=== PATIENT | female | born 1995 | race American Indian/Alaskan Native ===

== ENCOUNTER 2017-03-08 10:27 | Emergency (ER) | payer SELFPAY ==
[2017-03-08 10:57] VITALS: BP 111/71
--- NOTE | 2017-03-08 13:35 | Emergency Department Report ---
ED General Adult HPI - General Chief complaint: Rectal Pain Stated complaint: COUGH Time Seen by Provider: 03/08/17 13:24 Source: patient Mode of arrival: Ambulatory Limitations: No Limitations - History of Present Illness Initial comments: pt is a 21 y/o aaf who presents for uri symptoms x 1 week and secondary complaint for hemrrhoids recurring 2nd time this year symptoms include itching and burn , pain with palpation/wipping after defication pt denies seeing blood no abdominal pain no n/v , resp symptoms include clear post nasal drip and head congestion cough productive clear no sob no wheezing no fever no chills no Onset/Timin -: week(s) Location: buttocks (hemorrhoids) Radiation: non-radiation Severity scale (0 -10): 4 Quality: aching (burning ) Consistency: intermittent (Bowel Movement , palpation, wipping ) Improves with: other (nothing tried for cold symptoms ) Worsens with: none Associated Symptoms: denies: confusion, chest pain, diaphoresis, fever/chills, headaches, loss of appetite, malaise, nausea/vomiting, rash, seizure, shortness of breath, syncope, weakness Treatments Prior to Arrival: none - Related Data Previous Rx's Medication Instructions Recorded Last Taken Type Guaifenesin/Pseudoephedrne HCl 1 tab PO BID #24 tab 03/08/17 Unknown Rx [Mucinex D ER 1,200-120 mg Tab] Hydrocortisone/Pramoxine 10 gm RC BID #1 kit 03/08/17 Unknown Rx [Proctofoam-Hc Foam] Ibuprofen [Motrin 800 MG tab] 800 mg PO Q8HR PRN #30 tablet 03/08/17 Unknown Rx Allergies Allergy/AdvReac Type Severity Reaction Status Date / Time No Known Allergies Allergy Unverified 03/08/17 10:57 ED Review of Systems ROS: Stated complaint: COUGH Other details as noted in HPI Constitutional: denies: chills, fever Eyes: denies: eye pain, eye discharge, vision change ENT: congestion. denies: ear pain, throat pain, dental pain, hearing loss, epistaxis Respiratory: cough. denies: orthopnea, shortness of breath, wheezing Cardiovascular: denies: chest pain, palpitations Endocrine: no symptoms reported Gastrointestinal: other (hemorrhoids). denies: abdominal pain, nausea, vomiting , diarrhea, constipation, hematemesis, melena, hematochezia Genitourinary: denies: urgency, dysuria, discharge Musculoskeletal: denies: back pain, joint swelling, arthralgia Skin: denies: rash, lesions Neurological: denies: headache, weakness, paresthesias Psychiatric: denies: anxiety, depression Hematological/Lymphatic: denies: easy bleeding, easy bruising ED Past Medical Hx - Past Medical History Previous Medical History?: Yes Hx Seizures: Yes Additional medical history: HEMMORROID - Surgical History Past Surgical History?: No - Social History Smoking Status: Current Every Day Smoker Substance Use Type: None - Medications Home Medications: Home Medications Medication Instructions Recorded Confirmed Last Taken Type Guaifenesin/Pseudoephedrne HCl 1 tab PO BID #24 tab 03/08/17 Unknown Rx [Mucinex D ER 1,200-120 mg Tab] Hydrocortisone/Pramoxine 10 gm RC BID #1 kit 03/08/17 Unknown Rx [Proctofoam-Hc Foam] Ibuprofen [Motrin 800 MG tab] 800 mg PO Q8HR PRN #30 tablet 03/08/17 Unknown Rx ED Physical Exam - General Limitations: No Limitations General appearance: alert, in no apparent distress - Head Head exam: Present: atraumatic, normocephalic - Eye Eye exam: Present: normal appearance, PERRL, EOMI Pupils: Present: normal accommodation - ENT ENT exam: Present: mucous membranes moist, TM's normal bilaterally, normal external ear exam - Expanded ENT Exam Expanded Mouth exam: Present: normal external inspection, tongue normal. Absent: trismus , tongue elevation Teeth exam: Present: normal inspection Throat exam: Positive: normal inspection, tonsillar erythema (no exudate no lesion no swelling uvula midline no stridor ). Negative: tonsillomegaly, tonsillar exudate, R peritonsillar mass, L peritonsillar mass - Neck Neck exam: Present: normal inspection, full ROM. Absent: tenderness, lymphadenopathy, thyromegaly - Respiratory Respiratory exam: Present: normal lung sounds bilaterally. Absent: respiratory distress, wheezes, rales, rhonchi, stridor, chest wall tenderness, accessory muscle use, decreased breath sounds, prolonged expiratory - Cardiovascular Cardiovascular Exam: Present: regular rate, normal rhythm, normal heart sounds. Absent: clicks - GI/Abdominal GI/Abdominal exam: Present: soft, normal bowel sounds. Absent: distended, tenderness, guarding, rebound, rigid, organomegaly, mass, bruit, pulsatile mass , hernia - Rectal Rectal exam: Present: hemorrhoids (11oclock stage 1 nonthormboses external hemorrhoid no internal hemorrhoid to exam no bleeding ) - Extremities Exam Extremities exam: Present: normal inspection, full ROM, normal capillary refill , calf tenderness. Absent: tenderness, pedal edema, joint swelling - Back Exam Back exam: Present: normal inspection, full ROM. Absent: CVA tenderness (R), CVA tenderness (L), muscle spasm, paraspinal tenderness, vertebral tenderness, rash noted - Neurological Exam Neurological exam: Present: alert, oriented X3, normal gait, reflexes normal. Absent: CN II-XII intact, motor sensory deficit - Psychiatric Psychiatric exam: Present: normal affect, normal mood - Skin Skin exam: Present: warm, dry, intact, normal color. Absent: rash ED Course Vital Signs 03/08/17 10:54 Temperature 98.6 F Pulse Rate 74 Respiratory 18 Rate Blood Pressure 111/71 O2 Sat by Pulse 100 Oximetry ED Medical Decision Making - Medical Decision Making pt is a 21 y/o aaf who presents for uri symptoms x 1 week and secondary complaint for hemrrhoids recurring 2nd time this year symptoms include itching and burn , pain with palpation/wipping after defication pt denies seeing blood no abdominal pain no n/v , resp symptoms include clear post nasal drip and head congestion cough productive clear no sob no wheezing no fever no chills exam: ENT: tms clear no erythema, nose: clear post nasal drip no obstruction mild turbinate swelling boggy, phayrnx/tonsils: no exudate no lesion no swelling uvula midline no stridor buttocks: 11oclock stage 1 nonthormboses external hemorrhoid no internal hemorrhoid to exam no bleeding . plan: tx for uri, hemorrhoid with proctofoam pt instructed on prep H, and lidocaine applications otc if proctfoam too expensive pt will follow up with primary care in 1 week if symptoms not resolve, pt verbalized agreement and understanding with same. Critical care attestation.: If time is entered above; I have spent that time in minutes in the direct care of this critically ill patient, excluding procedure time. ED Disposition Clinical Impression: URI (upper respiratory infection) Qualifiers: URI type: acute nasopharyngitis (common cold) Qualified Code(s): J00 - Acute nasopharyngitis [common cold] Hemorrhoids Qualifiers: Hemorrhoid type: first degree Qualified Code(s): K64.0 - First degree hemorrhoids Disposition: TO HOME OR SELFCARE Is pt being admited?: No Does the pt Need Aspirin: No Condition: Good Instructions: Upper Respiratory Infection (ED), Hemorrhoids (ED) Prescriptions: Guaifenesin/Pseudoephedrne HCl [Mucinex D ER 1,200-120 mg Tab] 1 tab PO BID #24 tab Hydrocortisone/Pramoxine [Proctofoam-Hc Foam] 10 gm RC BID #1 kit Ibuprofen [Motrin 800 MG tab] 800 mg PO Q8HR PRN #30 tablet PRN Reason: Pain Referrals: PRIMARY CARE,MD [Primary Care Provider] - 3-5 Days Forms: Work/School Release Form(ED) Time of Disposition: 13:46
== END 2017-03-08 14:35 | disposition home or self-care (01) ==
LOC: ED 10:27
DX: K64.0 First degree hemorrhoids (principal); J00 Acute nasopharyngitis [common cold]; F17.200 Nicotine dependence, unspecified, uncomplicated
CPT/HCPCS: 99281

== ENCOUNTER 2017-06-11 20:13 | Emergency (ER) | payer OTHER ==
[2017-06-11 20:25] VITALS: BP 111/73
[2017-06-11 20:53] LABS: Bacteria,Urine 1+ /HPF (Negative); Bilirubin,Urine NEG (Negative); Blood,Urine NEG (Negative); Ketones,Urine NEG (Negative); Leukocyte Esterase,Urine MOD (Negative); Mucus,Urine FEW /HPF; Nitrite,Urine NEG (Negative); Protein,Urine <15 mg/dL mg/dL (Negative); Urobilinogen,Urine < 2.0 mg/dL (<2.0)
[2017-06-11] MEDS ORDERED: TORADOL IM ONE (21:05)
--- NOTE | 2017-06-11 21:08 | Emergency Department Report ---
ED Back Pain/Injury HPI - General Chief Complaint: Back Pain/Injury Stated Complaint: BACK PAIN Time Seen by Provider: 06/11/17 20:31 Source: patient Limitations: No Limitations - History of Present Illness Initial Comments: This is a 22-year-old female nontoxic, well nourished in appearance, no acute signs of distress presents to the ED with c/o of chronic intermittent back pain. Patient stated this afternoon she was putting dishes under the sink and developed severe pain. Patient denies any concomitant vision. Denies any dysuria, polyuria, hematuria, fever, chills, nausea, vomiting, bladder or bowel instability, chest pain or shortness of breath. Patient denies any drug allergies. Past medical history includes seizures and hemorrhoids. MD Complaint: back pain -: year(s) Similar Symptoms Previously: Yes Place: home Radiation: none Severity: mild Severity scale (0 -10): 8 Quality: aching Consistency: constant Improves With: none Worsens With: none Context: while lifting, turning/twisting Associated Symptoms: denies other symptoms. denies: confusion, weakness, chest pain, numbness, difficulty walking, cough, difficulty urinating, diaphoresis, incontinence, fever/chills, constipation, headaches, abdominal pain, loss of appetite, malaise, nausea/vomiting, rash, seizure, shortness of breath, syncope - Related Data Previous Rx's Medication Instructions Recorded Last Taken Type Guaifenesin/Pseudoephedrne HCl 1 tab PO BID #24 tab 03/08/17 Unknown Rx [Mucinex D ER 1,200-120 mg Tab] Hydrocortisone/Pramoxine 10 gm RC BID #1 kit 03/08/17 Unknown Rx [Proctofoam-Hc Foam] Ibuprofen [Motrin 800 MG tab] 800 mg PO Q8HR PRN #30 tablet 03/08/17 Unknown Rx Cyclobenzaprine [Flexeril] 10 mg PO QHS PRN #7 tablet 06/11/17 Unknown Rx Ibuprofen [Motrin] 600 mg PO Q8H PRN #30 tablet 06/11/17 Unknown Rx Sulfamethoxazole/Trimethoprim 1 each PO BID #14 tablet 06/11/17 Unknown Rx [Bactrim DS TAB] Allergies Allergy/AdvReac Type Severity Reaction Status Date / Time pineapple Allergy Anaphylaxis Verified 06/11/17 20:20 seafood Allergy Anaphylaxis Uncoded 06/11/17 20:19 ED Review of Systems ROS: Stated complaint: BACK PAIN Other details as noted in HPI Constitutional: denies: chills, fever Eyes: denies: eye pain, eye discharge, vision change ENT: denies: ear pain, throat pain Respiratory: denies: cough, shortness of breath, wheezing Cardiovascular: denies: chest pain, palpitations Endocrine: no symptoms reported Gastrointestinal: denies: abdominal pain, nausea, diarrhea Genitourinary: denies: urgency, dysuria, discharge Musculoskeletal: back pain. denies: joint swelling, arthralgia Skin: denies: rash, lesions Neurological: denies: headache, weakness, paresthesias Psychiatric: denies: anxiety, depression Hematological/Lymphatic: denies: easy bleeding, easy bruising ED Past Medical Hx - Past Medical History Previous Medical History?: Yes Hx Seizures: Yes Additional medical history: HEMMORROID - Surgical History Past Surgical History?: No - Social History Smoking Status: Current Every Day Smoker Substance Use Type: Marijuana - Medications Home Medications: Home Medications Medication Instructions Recorded Confirmed Last Taken Type Guaifenesin/Pseudoephedrne HCl 1 tab PO BID #24 tab 03/08/17 Unknown Rx [Mucinex D ER 1,200-120 mg Tab] Hydrocortisone/Pramoxine 10 gm RC BID #1 kit 03/08/17 Unknown Rx [Proctofoam-Hc Foam] Ibuprofen [Motrin 800 MG tab] 800 mg PO Q8HR PRN #30 tablet 03/08/17 Unknown Rx Cyclobenzaprine [Flexeril] 10 mg PO QHS PRN #7 tablet 06/11/17 Unknown Rx Ibuprofen [Motrin] 600 mg PO Q8H PRN #30 tablet 06/11/17 Unknown Rx Sulfamethoxazole/Trimethoprim 1 each PO BID #14 tablet 06/11/17 Unknown Rx [Bactrim DS TAB] ED Physical Exam - General Limitations: No Limitations General appearance: alert, in no apparent distress - Head Head exam: Present: atraumatic, normocephalic, normal inspection - Eye Eye exam: Present: normal appearance, PERRL, EOMI. Absent: scleral icterus, conjunctival injection, nystagmus, periorbital swelling, periorbital tenderness Pupils: Present: normal accommodation - ENT ENT exam: Present: normal exam, normal orophraynx, mucous membranes moist, TM's normal bilaterally, normal external ear exam - Neck Neck exam: Present: normal inspection, full ROM. Absent: tenderness, meningismus, lymphadenopathy, thyromegaly - Respiratory Respiratory exam: Present: normal lung sounds bilaterally. Absent: respiratory distress, wheezes, rales, rhonchi, stridor, chest wall tenderness, accessory muscle use, decreased breath sounds, prolonged expiratory - Cardiovascular Cardiovascular Exam: Present: regular rate, normal rhythm, normal heart sounds. Absent: bradycardia, tachycardia, irregular rhythm, systolic murmur, diastolic murmur, rubs, gallop - GI/Abdominal GI/Abdominal exam: Present: soft, normal bowel sounds. Absent: distended, tenderness, guarding, rebound, rigid, diminished bowel sounds - Rectal Rectal exam: Present: deferred - Extremities Exam Extremities exam: Present: normal inspection, full ROM, normal capillary refill. Absent: tenderness, pedal edema, joint swelling, calf tenderness - Back Exam Back exam: Present: normal inspection, full ROM, paraspinal tenderness (lumbar region). Absent: tenderness, CVA tenderness (R), CVA tenderness (L), muscle spasm, vertebral tenderness, rash noted - Neurological Exam Neurological exam: Present: alert, oriented X3, CN II-XII intact, normal gait, reflexes normal - Psychiatric Psychiatric exam: Present: normal affect, normal mood - Skin Skin exam: Present: warm, dry, intact, normal color. Absent: rash ED Course Vital Signs 06/11/17 20:20 Temperature 97.9 F Pulse Rate 83 Respiratory 18 Rate Blood Pressure 111/73 O2 Sat by Pulse 100 Oximetry - Reevaluation(s) Reevaluation #1: 06/11/17 21:06 Patient is speaking in full sentences with no signs of distress noted. ED Medical Decision Making - Medical Decision Making This is a 22-year-old female that presents with low back strain and UTI. Patient is stable and was examined by me. UA has been obtained with slight elevation of leukocytes and WBCs. Patient received Toradol 30 mg IM and ED record for the symptoms are improving as subsided. Patient treated with Bactrim , Flexeril and Motrin. She was instructed to not operate or drink any alcohol while taking Ultram due to drowsiness. Patient was instructed Follow-up with a primary care doctor in 3-5 days or if symptoms worsen and continue return to emergency room as soon as possible. At time time of discharge, the patient does not seem toxic or ill in appearance. No acute signs of distress noted. Patient agrees to discharge treatment plan of care. No further questions noted by the patient. Critical care attestation.: If time is entered above; I have spent that time in minutes in the direct care of this critically ill patient, excluding procedure time. ED Disposition Clinical Impression: Low back strain Qualifiers: Encounter type: initial encounter Qualified Code(s): S39.012A - Strain of muscle, fascia and tendon of lower back, initial encounter UTI (urinary tract infection) Qualifiers: Urinary tract infection type: site unspecified Hematuria presence: without hematuria Qualified Code(s): N39.0 - Urinary tract infection, site not specified Disposition: TO HOME OR SELFCARE Is pt being admited?: No Does the pt Need Aspirin: No Condition: Stable Instructions: Low Back Strain (ED), Cyclobenzaprine (By mouth), Ibuprofen (By mouth), Urinary Tract Infection in Women (ED), Sulfamethoxazole/Trimethoprim ( By mouth) Additional Instructions: Follow-up with your primary care doctor in 3-5 days or if symptoms worsen such as bladder or bowel stability, chest pain, short of breath, numbness or tingling sensation in extremities, headache, dizziness, visual changes, nausea vomiting, or abdominal pain, return back to emergency room as was possible. Take ibuprofen and Flexeril as prescribed. Do not operate heavy machinery while taking Flexeril due to sedation Prescriptions: Cyclobenzaprine [Flexeril] 10 mg PO QHS PRN #7 tablet PRN Reason: Muscle Spasm Ibuprofen [Motrin] 600 mg PO Q8H PRN #30 tablet PRN Reason: Pain Sulfamethoxazole/Trimethoprim [Bactrim DS TAB] 1 each PO BID #14 tablet Referrals: PRIMARY CAREMD [Primary Care Provider] - 3-5 Days HAIR ROLAND MD [Staff Physician] - 3-5 Days [facility] [Outside] - 3-5 Days [facility] [Outside] - 3-5 Days Forms: Work/School Release Form(ED)
== END 2017-06-11 21:44 | disposition home or self-care (01) ==
LOC: ED 20:13
DX: S39.012A Strain of muscle, fascia and tendon of lower back, initial encounter (principal); N39.0 Urinary tract infection, site not specified; R56.9 Unspecified convulsions; Z91.013 Allergy to seafood; Z91.018 Allergy to other foods; F17.200 Nicotine dependence, unspecified, uncomplicated; F12.10 Cannabis abuse, uncomplicated; X50.1XXA Overexertion from prolonged static or awkward postures, initial encounter; Y93.89 Activity, other specified; Y92.89 Other specified places as the place of occurrence of the external cause; Y99.8 Other external cause status
CPT/HCPCS: 81001; 81025; 87086; 96372; 99283; J1885

== ENCOUNTER 2017-07-26 20:34 | Emergency (ER) | payer SELFPAY ==
[2017-07-26 22:21] VITALS: BP 108/72
[2017-07-26 23:14] LABS: Basophils % (Auto) 0.8 % (0.0-1.8); Eosinophils # (Auto) 0.2 K/mm3 (0.0-0.4); Hematocrit 36.3 % (30.3-42.9); Hemoglobin 11.9 gm/dl (10.1-14.3); Lymphocytes # (Auto) 1.8 K/mm3 (1.2-5.4); Lymphocytes % (Auto) 41.4 % (13.4-35.0); Mean Corpuscular HGB Conc 33 % (30-34); Mean Corpuscular Hemoglobin 28 pg (28-32); Mean Corpuscular Volume 86 fl (79-97); Monocytes # (Auto) 0.5 K/mm3 (0.0-0.8); Monocytes % (Auto) 10.4 % (0.0-7.3); Platelet Count 325 K/mm3 (140-440); Red Blood Count 4.21 M/mm3 (3.65-5.03); Red Cell Distribution Width 15.4 % (13.2-15.2)
[2017-07-26 23:24] LABS: Alanine Aminotransferase 25 units/L (7-56); Albumin 3.9 g/dL (3.9-5); BUN/Creatinine Ratio 14; Blood Urea Nitrogen 10 mg/dL (7-17); Calcium 8.5 mg/dL (8.4-10.2); Hemolysis Index 6
[2017-07-27 00:24] LABS: Bacteria,Urine 1+ /HPF (Negative); Bilirubin,Urine NEG (Negative); Blood,Urine SM (Negative); Color,Urine Yellow (Yellow); Mucus,Urine FEW /HPF; Nitrite,Urine NEG (Negative); Protein,Urine <15 mg/dL mg/dL (Negative); Urobilinogen,Urine < 2.0 mg/dL (<2.0)
== END 2017-07-27 01:24 | disposition left against medical advice (07) ==
LOC: ED 20:34
DX: N93.9 Abnormal uterine and vaginal bleeding, unspecified (principal); Z53.21 Procedure and treatment not carried out due to patient leaving prior to being seen by health care provider
CPT/HCPCS: 36415; 80053; 81001; 84702; 84703; 85025; 86850; 86900; 86901

== ENCOUNTER 2017-07-29 10:18 | Emergency (ER) | payer SELFPAY ==
[2017-07-29 10:31] VITALS: BP 104/68
[2017-07-29] MEDS ORDERED: MOTRIN PO ONE (11:47)
--- NOTE | 2017-07-29 12:52 | Emergency Department Report ---
HPI - General Chief Complaint: Abdominal Pain Time Seen by Provider: 07/29/17 11:29 - HPI HPI: The patient's 22-year-old female presents for evaluation of abdominal pain. The patient reports lower abdominal pain for the past 6 days, cramping in quality, 5/10 in severity, exacerbated with movement, and associated with waxing and waning vaginal bleeding. The patient denies fever, chills, night sweats, diarrhea, blood in the stool, dark tarry stool, dysuria, hematuria, flank pain, genital discharge, inability to pass flatus. ED Past Medical Hx - Past Medical History Hx Seizures: Yes Additional medical history: HEMMORROID, epilepsy - Surgical History Past Surgical History?: No - Social History Smoking Status: Never Smoker Substance Use Type: None, Marijuana - Medications Home Medications: Home Medications Medication Instructions Recorded Confirmed Last Taken Type Guaifenesin/Pseudoephedrne HCl 1 tab PO BID #24 tab 03/08/17 Unknown Rx [Mucinex D ER 1,200-120 mg Tab] Hydrocortisone/Pramoxine 10 gm RC BID #1 kit 03/08/17 Unknown Rx [Proctofoam-Hc Foam] Ibuprofen [Motrin 800 MG tab] 800 mg PO Q8HR PRN #30 tablet 03/08/17 Unknown Rx Cyclobenzaprine [Flexeril] 10 mg PO QHS PRN #7 tablet 06/11/17 Unknown Rx Ibuprofen [Motrin] 600 mg PO Q8H PRN #30 tablet 06/11/17 Unknown Rx Sulfamethoxazole/Trimethoprim 1 each PO BID #14 tablet 06/11/17 Unknown Rx [Bactrim DS TAB] ED Review of Systems ROS: Stated complaint: ABDOMINAL CRAMPING/VAGINAL BLEEDING Other details as noted in HPI Constitutional: denies: fever ENT: denies: throat or neck pain Respiratory: denies: cough, shortness of breath Cardiovascular: denies: chest pain Endocrine: denies unexplained weight loss or gain Gastrointestinal: reports: abdominal pain, nausea Genitourinary: denies: dysuria Musculoskeletal: denies: leg swelling Skin: denies: rash Neurological: denies: headache Hematological/Lymphatic: denies: easy bleeding or easy bruising Psych: denies sadness or hopelessness Physical Exam - Physical Exam Vital Signs: Vital Signs 07/29/17 10:25 Temperature 97.8 F Pulse Rate 89 Respiratory 16 Rate Blood Pressure 104/68 O2 Sat by Pulse 99 Oximetry Physical Exam: General: well-nourished, well-developed, no acute distress Head: Normocephalic, atraumatic Eyes: normal sclera ENT: Mucous membranes are pink and moist Neck: trachea midline, neck supple, No neck stiffness, no cervical adenopathy Respiratory: Breath sounds equal bilaterally, no wheezing, rales, or rhonchi Cardio: S1 and S2 present, no murmurs, rubs, gallops, capillary refill is brisk Abdomen: Normoactive bowel sounds, soft abdomen, epigastric tenderness, no rigidity, no guarding or rebound tenderness Musc: No pitting edema Skin: No rash Neuro: no facial drooping, normal speech Psych: Normal affect ED Course Vital Signs 07/29/17 10:25 Temperature 97.8 F Pulse Rate 89 Respiratory 16 Rate Blood Pressure 104/68 O2 Sat by Pulse 99 Oximetry ED Medical Decision Making - Medical Decision Making The patient was seen and examined by myself. The patient is placed on a clinical research monitor and continuous pulse ox. On initial evaluation, the patient was found to be in no distress. Evaluation orders were placed. Medical records are reviewed and revealed that the patient received a Prevacid test 2 days ago which was negative, and was found to have normal hemoglobin and hematocrit on blood work. As the lab results were reassuring including non-concerning levels of RBC, hemoglobin, hematocrit, and negative test, the patient is stable for discharge with outpatient follow-up. The patient eloped prior to receiving repeated blood work, pain medicine, or discharge and follow up instructions. Critical care attestation.: If time is entered above; I have spent that time in minutes in the direct care of this critically ill patient, excluding procedure time. ED Disposition Clinical Impression: Suprapubic abdominal pain, DUB (dysfunctional uterine bleeding) Disposition: Z-07 ELOPED Is pt being admited?: No Does the pt Need Aspirin: No Condition: Stable Instructions: Abdominal Pain (ED) Referrals: PRIMARY CARE, [Primary Care Provider] - 3-5 Days Time of Disposition: 12:54
== END 2017-07-29 12:06 | disposition left against medical advice (07) ==
LOC: ED 10:18
DX: N93.8 Other specified abnormal uterine and vaginal bleeding (principal); R10.30 Lower abdominal pain, unspecified

== ENCOUNTER 2019-02-04 10:29 | Emergency (ER) | payer SELFPAY ==
[2019-02-04 10:52] VITALS: BP 111/74
--- NOTE | 2019-02-04 11:30 | Emergency Department Report ---
ED General Adult HPI - General Chief complaint: Skin/Abscess/Foreign Body Stated complaint: RASH/MOUTH/CYST LT AXILLA Time Seen by Provider: 02/04/19 11:21 Source: patient Mode of arrival: Ambulatory Limitations: No Limitations - History of Present Illness Initial comments: Patient is 23 years old female with history of epilepsy. Patient [facility] with 2 complaining. Patient stated that she's been having cough for the last 3 weeks, productive with greenish sputum. Patient denied any fever or chills. Patient also stated that she has a cyst under her left axilla for the last 2 months, and has some drainage. Patient stated that she has been having this problem on and off. Patient denied any nausea or vomiting. - Related Data Previous Rx's Medication Instructions Recorded Last Taken Type Guaifenesin/Pseudoephedrne HCl 1 tab PO BID #24 tab 03/08/17 Unknown Rx [Mucinex D ER 1,200-120 mg Tab] Hydrocortisone/Pramoxine 10 gm RC BID #1 kit 03/08/17 Unknown Rx [Proctofoam-Hc Foam] Ibuprofen [Motrin 800 MG tab] 800 mg PO Q8HR PRN #30 tablet 03/08/17 Unknown Rx Cyclobenzaprine [Flexeril] 10 mg PO QHS PRN #7 tablet 06/11/17 Unknown Rx Ibuprofen [Motrin] 600 mg PO Q8H PRN #30 tablet 06/11/17 Unknown Rx Sulfamethoxazole/Trimethoprim 1 each PO BID #14 tablet 06/11/17 Unknown Rx [Bactrim DS TAB] Allergies Allergy/AdvReac Type Severity Reaction Status Date / Time pineapple Allergy Anaphylaxis Verified 06/11/17 20:20 seafood Allergy Anaphylaxis Uncoded 06/11/17 20:19 ED Review of Systems ROS: Stated complaint: RASH/MOUTH/CYST LT AXILLA Other details as noted in HPI Comment: All other systems reviewed and negative Constitutional: denies: chills, fever Respiratory: cough. denies: shortness of breath, SOB with exertion, wheezing Cardiovascular: denies: chest pain, palpitations Gastrointestinal: denies: abdominal pain, nausea, vomiting Musculoskeletal: denies: back pain Neurological: denies: headache, weakness, numbness, paresthesias, confusion, abnormal gait, vertigo ED Past Medical Hx - Past Medical History Previous Medical History?: Yes Hx Seizures: Yes Additional medical history: HEMMORROID, epilepsy - Surgical History Past Surgical History?: No - Social History Smoking Status: Never Smoker Substance Use Type: Marijuana - Medications Home Medications: Home Medications Medication Instructions Recorded Confirmed Last Taken Type Guaifenesin/Pseudoephedrne HCl 1 tab PO BID #24 tab 03/08/17 Unknown Rx [Mucinex D ER 1,200-120 mg Tab] Hydrocortisone/Pramoxine 10 gm RC BID #1 kit 03/08/17 Unknown Rx [Proctofoam-Hc Foam] Ibuprofen [Motrin 800 MG tab] 800 mg PO Q8HR PRN #30 tablet 03/08/17 Unknown Rx Cyclobenzaprine [Flexeril] 10 mg PO QHS PRN #7 tablet 06/11/17 Unknown Rx Ibuprofen [Motrin] 600 mg PO Q8H PRN #30 tablet 06/11/17 Unknown Rx Sulfamethoxazole/Trimethoprim 1 each PO BID #14 tablet 06/11/17 Unknown Rx [Bactrim DS TAB] ED Physical Exam - General Limitations: No Limitations General appearance: alert, in no apparent distress - Head Head exam: Present: atraumatic, normocephalic, normal inspection - ENT ENT exam: Present: normal exam, normal orophraynx, mucous membranes moist - Neck Neck exam: Present: normal inspection. Absent: tenderness, meningismus - Respiratory Respiratory exam: Present: normal lung sounds bilaterally - Cardiovascular Cardiovascular Exam: Present: regular rate, normal rhythm, normal heart sounds - GI/Abdominal GI/Abdominal exam: Present: soft, normal bowel sounds. Absent: distended, tenderness, guarding, rebound, rigid - Extremities Exam Extremities exam: Present: normal inspection, full ROM, normal capillary refill - Neurological Exam Neurological exam: Present: alert, oriented X3, CN II-XII intact, normal gait - Skin Skin exam: Present: warm, other (left axilla with suppurative hydradenitis, nonfluctuant.) ED Course Vital Signs 02/04/19 10:50 Temperature 98.5 F Pulse Rate 88 Respiratory 18 Rate Blood Pressure 111/74 O2 Sat by Pulse 100 Oximetry Critical care attestation.: If time is entered above; I have spent that time in minutes in the direct care of this critically ill patient, excluding procedure time. ED Disposition Clinical Impression: Acute bronchitis, Suppurative hidradenitis Disposition: DC- TO HOME OR SELFCARE Is pt being admited?: No Condition: Stable Instructions: Acute Bronchitis (ED), Abscess (ED) Referrals: [facility] [Provider Group] - 3-5 Days
== END 2019-02-04 11:38 | disposition home or self-care (01) ==
LOC: ED 10:29
DX: J20.9 Acute bronchitis, unspecified (principal); L73.2 Hidradenitis suppurativa; G40.909 Epilepsy, unspecified, not intractable, without status epilepticus; F12.10 Cannabis abuse, uncomplicated; Z79.899 Other long term (current) drug therapy; Z91.018 Allergy to other foods; Z91.013 Allergy to seafood
CPT/HCPCS: 99281

== ENCOUNTER 2019-02-26 09:23 | Emergency (ER) | payer SELFPAY ==
[2019-02-26 09:40] VITALS: BP 122/74
--- NOTE | 2019-02-26 11:47 | Emergency Department Report ---
Chief Complaint: Neck Pain/Injury Stated Complaint: LUMP ON BACK OF NECK Time Seen by Provider: 02/26/19 11:02 - HPI History of Present Illness: 23-year-old female comes in to the back of her neck for 3 days. He denies any pain or swelling no redness. Patient also complains of tingling down the left arm and a feeling of a full bladder. Denies any fever chills or nausea vomiting abdominal pain. - Exam Vital Signs: Vital Signs 02/26/19 09:38 Temperature 97.8 F Pulse Rate 72 Respiratory 16 Rate Blood Pressure 122/74 [Left] O2 Sat by Pulse 100 Oximetry Physical Exam: Oriented 3. Neck full range of motion nontender to palpate pea size lesion under the skin. Nonerythematous nonedematous. MSE screening note: Focused history and physical exam performed. Due to findings the following was ordered: Patient does not have a threat to loss of limb or . Patient can follow up with her primary care provider. ED Disposition for MSE Disposition: Z- MED SCREENING EXAM-LEFT Is pt being admited?: No Does the pt Need Aspirin: No Condition: Stable Referrals: PRIMARY CARE [Primary Care Provider] - 3-5 Days [facility] [Provider Group] - 3-5 Days
== END 2019-02-26 11:54 | disposition left against medical advice (07) ==
LOC: ED 09:23
DX: M54.2 Cervicalgia (principal); Z53.21 Procedure and treatment not carried out due to patient leaving prior to being seen by health care provider